=== PATIENT | female | born 1970 | race Hispanic/Latino ===

== ENCOUNTER 2021-12-24 11:19 | Emergency (ER) | payer MEDICARE ==
[~2021-12-24] VITALS: Ht 160 cm; Wt 71.2 kg
[~2021-12-24 11:19] MED LIST: TESSALON PERLE100 MG PO; VENTOLIN HFA18 GM PO
[2021-12-24] MEDS ORDERED: LEVOTHYROXINE50 MC1 (11:32)
[2021-12-24] MEDS ORDERED: CORTISPORIN-TC10 M1 EACH EAR (11:47)
[2021-12-24] MEDS ORDERED: CEFDINIR300 MG PO (11:47)
== END 2021-12-24 11:55 | disposition home or self-care (01) ==
LOC: FSED 11:34
DX: H66.93 Otitis media, unspecified, bilateral (principal); J20.9 Acute bronchitis, unspecified; E03.9 Hypothyroidism, unspecified
CPT/HCPCS: 83518; 99283

== ENCOUNTER → 2025-08-13 | Day surgery (SDC) | payer MEDICARE ==
[~2025-08-13] MED LIST changes: +CEFDINIR300 MG PO; +CORTISPORIN-TC10 M1 EACH EAR; +HYOSCYAMINE SULFATE 0.5 MG/ML INJ ONE; +LACTATED RINGER'S 1,000 ML ONE; +LEVOTHYROXINE50 MC1; +LIDOCAINE HCL 2% LOCAL INJ 5 ML SDV VIAL INJ ONE; +METOCLOPRAMIDE HCL 10 MG/2ML VIAL ONE; +PROPOFOL IV EMULSION 10 MG/ML 20 ML VIAL ONE
[2025-08-13 12:01] VITALS: TEMP 97.4
[2025-08-13 12:30] VITALS: BP 122/79; PULSE 76; RESP 15; O2SAT 98
== END | disposition home or self-care (01) ==
LOC: OR 08:28
PROVIDERS: ATTEND Internal Medicine Gastroenterology
DX: Z12.11 Encounter for screening for malignant neoplasm of colon (principal); D12.5 Benign neoplasm of sigmoid colon; K29.50 Unspecified chronic gastritis without bleeding; K20.90 Esophagitis, unspecified without bleeding; K31.89 Other diseases of stomach and duodenum; K59.09 Other constipation; K64.8 Other hemorrhoids; R63.4 Abnormal weight loss; E03.9 Hypothyroidism, unspecified; Z01.810 Encounter for preprocedural cardiovascular examination; Z71.3 Dietary counseling and surveillance
CPT/HCPCS: 43239; 43450; 45385; 88305; 93005; J1980; J2003; J2470; J2704; J2765; J7121; 45378

== ENCOUNTER → 2025-09-13 | Outpatient (REF) | payer MEDICARE ==
[~2025-09-13] MED LIST changes: -HYOSCYAMINE SULFATE 0.5 MG/ML INJ ONE; +IOPAMIDOL 370 MG/ML 100 ML INFUS..BTL INJ ONE; -LACTATED RINGER'S 1,000 ML ONE; -LIDOCAINE HCL 2% LOCAL INJ 5 ML SDV VIAL INJ ONE; -METOCLOPRAMIDE HCL 10 MG/2ML VIAL ONE; -PROPOFOL IV EMULSION 10 MG/ML 20 ML VIAL ONE
== END ==
LOC: CT 11:36
PROVIDERS: ATTEND Nurse Practitioner
DX: R19.00 Intra-abdominal and pelvic swelling, mass and lump, unspecified site (principal)
CPT/HCPCS: 74177; Q9967